=== PATIENT | male | born 1950 | race Caucasian/White ===

== ENCOUNTER → 2021-05-21 | Day surgery (SDC) | payer OTHER ==
[~2021-05-21] MED LIST: BUPIVACAINE MPF 0.25% 30 ML VIAL. ONE; BUPR300T92 PO; BUSP15TA PO; CHOL500021 PO; CYAN100072 INJ; FINA5TAB4 PO; FOLI20CA PO; GABA100C81 PO; HYDR-2145 PO; HYDR170P TP; LIDOCAINE 1% PF 30 ML VIAL. ONE; LOSA50TA86 PO; MONT10TA80 PO; OMEG1CAP50 PO; OMEP20TA8 PO; SERT-269 PO; SIMV80TA17 PO; TRAZ-125 PO; TRIA15CR2 TP; WARF-31 PO
[2021-05-21 12:23] VITALS: BP 135/78
== END | disposition home or self-care (01) ==
LOC: SURG 11:17
PROVIDERS: ATTEND Anesthesiology
DX: M47.816 Spondylosis without myelopathy or radiculopathy, lumbar region (principal); M54.59 Other low back pain; G89.29 Other chronic pain; I12.9 Hypertensive chronic kidney disease with stage 1 through stage 4 chronic kidney disease, or unspecified chronic kidney disease; N18.9 Chronic kidney disease, unspecified; F32.9 Major depressive disorder, single episode, unspecified; Z98.890 Other specified postprocedural states; Z79.899 Other long term (current) drug therapy; Z88.8 Allergy status to other drugs, medicaments and biological substances
CPT/HCPCS: 64493; 64494; J3490

== ENCOUNTER → 2021-06-04 | Day surgery (SDC) | payer OTHER ==
[~2021-06-04] MED LIST changes: +BUPIVACAINE MPF 0.25% 10 ML VIAL. ONE; -BUPIVACAINE MPF 0.25% 30 ML VIAL. ONE
[2021-06-04 10:53] VITALS: BP 148/82
== END | disposition home or self-care (01) ==
LOC: SURG 10:04
PROVIDERS: ATTEND Anesthesiology
DX: M47.816 Spondylosis without myelopathy or radiculopathy, lumbar region (principal); M48.061 Spinal stenosis, lumbar region without neurogenic claudication; F32.9 Major depressive disorder, single episode, unspecified; I12.9 Hypertensive chronic kidney disease with stage 1 through stage 4 chronic kidney disease, or unspecified chronic kidney disease; N18.9 Chronic kidney disease, unspecified; Z79.899 Other long term (current) drug therapy; Z98.890 Other specified postprocedural states
CPT/HCPCS: 64493; 64494; J3490; 64495

== ENCOUNTER → 2021-06-18 | Day surgery (SDC) | payer OTHER ==
[~2021-06-18] MED LIST changes: -BUPIVACAINE MPF 0.25% 10 ML VIAL. ONE; -LIDOCAINE 1% PF 30 ML VIAL. ONE
[2021-06-18 11:39] VITALS: BP 147/84
== END | disposition home or self-care (01) ==
LOC: SURG 11:29
PROVIDERS: ATTEND Anesthesiology
DX: M54.50 Low back pain, unspecified (principal); M47.816 Spondylosis without myelopathy or radiculopathy, lumbar region; M48.061 Spinal stenosis, lumbar region without neurogenic claudication; I12.9 Hypertensive chronic kidney disease with stage 1 through stage 4 chronic kidney disease, or unspecified chronic kidney disease; N18.9 Chronic kidney disease, unspecified; F32.9 Major depressive disorder, single episode, unspecified; Z79.01 Long term (current) use of anticoagulants; Z79.899 Other long term (current) drug therapy
CPT/HCPCS: 99213; G0463

== ENCOUNTER → 2021-07-02 | Day surgery (SDC) | payer OTHER ==
[~2021-07-02] MED LIST changes: +BUPIVACAINE MPF 0.25% 10 ML VIAL. INJ ONE; +BUPIVACAINE MPF 0.25% 10 ML VIAL. ONE; +DEXAMETHASONE SOD PHOS 10 MG/ML VIAL. INT ART ONE; +DEXAMETHASONE SOD PHOS 10 MG/ML VIAL. ONE; +LIDOCAINE 1% PF 30 ML VIAL. INJ ONE; +LIDOCAINE 1% PF 30 ML VIAL. ONE; +MIDAZOLAM HCL PF 2 MG/2 ML VIAL. IVP ONE; +MIDAZOLAM HCL PF 2 MG/2 ML VIAL. ONE; +eliquis PO
[2021-07-02 10:16] VITALS: BP 133/80
== END | disposition home or self-care (01) ==
LOC: SURG 08:26
PROVIDERS: ATTEND Anesthesiology
DX: M47.816 Spondylosis without myelopathy or radiculopathy, lumbar region (principal); M48.061 Spinal stenosis, lumbar region without neurogenic claudication; I12.9 Hypertensive chronic kidney disease with stage 1 through stage 4 chronic kidney disease, or unspecified chronic kidney disease; N18.9 Chronic kidney disease, unspecified; F32.9 Major depressive disorder, single episode, unspecified; Z79.899 Other long term (current) drug therapy; Z98.890 Other specified postprocedural states; Z72.89 Other problems related to lifestyle
CPT/HCPCS: 64635; 64636; 99152; 99153; A4657; A4930; J1100; J2250; J3010; J3490

== ENCOUNTER → 2021-07-16 | Day surgery (SDC) | payer OTHER ==
[~2021-07-16] MED LIST changes: +BUPIVACAINE MPF 0.25% 10 ML VIAL. IJ ONE; -BUPIVACAINE MPF 0.25% 10 ML VIAL. INJ ONE; -DEXAMETHASONE SOD PHOS 10 MG/ML VIAL. INT ART ONE; +DEXAMETHASONE SOD PHOS 10 MG/ML VIAL. IV ONE; +LIDOCAINE 1% Multi-Dose 20 ML VIAL. IJ ONE; -LIDOCAINE 1% PF 30 ML VIAL. INJ ONE; -LIDOCAINE 1% PF 30 ML VIAL. ONE
[2021-07-16 10:12] VITALS: BP 127/80
== END | disposition home or self-care (01) ==
LOC: SURG 08:54
PROVIDERS: ATTEND Anesthesiology
DX: M47.816 Spondylosis without myelopathy or radiculopathy, lumbar region (principal); M48.061 Spinal stenosis, lumbar region without neurogenic claudication; I12.9 Hypertensive chronic kidney disease with stage 1 through stage 4 chronic kidney disease, or unspecified chronic kidney disease; N18.9 Chronic kidney disease, unspecified; F32.9 Major depressive disorder, single episode, unspecified; Z79.899 Other long term (current) drug therapy; Z98.890 Other specified postprocedural states
CPT/HCPCS: 64635; 64636; 99152; 99153; A4209; A4657; A4930; J1100; J2250; J3010; J3490

== ENCOUNTER → 2021-08-20 | Day surgery (SDC) | payer OTHER ==
[~2021-08-20] MED LIST changes: -BUPIVACAINE MPF 0.25% 10 ML VIAL. IJ ONE; -BUPIVACAINE MPF 0.25% 10 ML VIAL. ONE; -DEXAMETHASONE SOD PHOS 10 MG/ML VIAL. IV ONE; -DEXAMETHASONE SOD PHOS 10 MG/ML VIAL. ONE; -LIDOCAINE 1% Multi-Dose 20 ML VIAL. IJ ONE; -MIDAZOLAM HCL PF 2 MG/2 ML VIAL. IVP ONE; -MIDAZOLAM HCL PF 2 MG/2 ML VIAL. ONE
[2021-08-20 09:03] VITALS: BP 151/84
== END ==
LOC: SURG 08:56
PROVIDERS: ATTEND Anesthesiology
DX: M47.816 Spondylosis without myelopathy or radiculopathy, lumbar region (principal); M48.061 Spinal stenosis, lumbar region without neurogenic claudication; G89.29 Other chronic pain; I12.9 Hypertensive chronic kidney disease with stage 1 through stage 4 chronic kidney disease, or unspecified chronic kidney disease; N18.9 Chronic kidney disease, unspecified; F32.9 Major depressive disorder, single episode, unspecified; Z98.890 Other specified postprocedural states; Z79.899 Other long term (current) drug therapy
CPT/HCPCS: 99214; G0463